=== PATIENT | male | born 2000 | race Caucasian/White ===

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

== ENCOUNTER 2022-01-05 16:12 | Outpatient (RCR) | payer MEDICAID ==
[~2022-01-05] VITALS: Ht 182.9 cm; Wt 90.8 kg
[~2022-01-05 16:12] MED LIST: FLOVENT 220MCG7.9 GM IH; IRON TABLETS325 MG PO; PEPTO BISMOL262 MG PO; PROAIR HFA0.09 MG/AC IH; TYLENOL 500MG500 MG PO
[2022-01-05 16:30] VITALS: BP 125/58; PULSE 76; TEMP 97.6
== END 2022-01-05 17:08 ==
LOC: EUO 16:12
DX: Z51.81 Encounter for therapeutic drug level monitoring (principal)
CPT/HCPCS: Q5106

== ENCOUNTER 2022-01-19 13:53 | Outpatient (CLI) | payer MEDICAID ==
[~2022-01-19] VITALS: Ht 182.9 cm; Wt 97.3 kg
[2022-01-19 14:48] VITALS: BP 126/80; PULSE 84; TEMP 98.3
== END 2022-01-19 15:25 | disposition home or self-care (01) ==
LOC: EUO 13:53
DX: D64.9 Anemia, unspecified (principal); N17.8 Other acute kidney failure
CPT/HCPCS: Q5106

== ENCOUNTER → 2022-01-27 | Outpatient (CLI) | payer MEDICAID | LOC: COL.RAD 16:32 | DX: R06.02 Shortness of breath (principal) ==

== ENCOUNTER 2022-02-05 15:01 | Outpatient (RCR) | payer MEDICAID ==
[~2022-02-05] VITALS: Ht 182.9 cm; Wt 98.7 kg
[2022-02-05 15:32] LABS: HEMATOCRIT 26.8 % (36.0-47.0); HEMOGLOBIN 9.4 g/dl (12.5-16.1)
[2022-02-05 15:54] VITALS: BP 120/68; PULSE 72; TEMP 97.8
== END 2022-02-05 15:57 ==
LOC: EUO 15:01
PROVIDERS: Internal Medicine Nephrology
DX: N17.8 Other acute kidney failure (principal); N18.9 Chronic kidney disease, unspecified; D63.1 Anemia in chronic kidney disease
CPT/HCPCS: Q5105; Q5106

== ENCOUNTER 2022-02-19 15:00 | Outpatient (CLI) | payer MEDICAID ==
[~2022-02-19] VITALS: Ht 182.9 cm; Wt 97.2 kg
[2022-02-19 15:32] VITALS: BP 122/70; PULSE 87; TEMP 97.9
== END 2022-02-19 17:31 ==
LOC: EUO 15:00
DX: N17.8 Other acute kidney failure (principal); D64.9 Anemia, unspecified
CPT/HCPCS: Q5105; Q5106

== ENCOUNTER 2022-03-08 15:58 | Outpatient (RCR) | payer MEDICAID ==
[~2022-03-08] VITALS: Ht 182.9 cm; Wt 97.2 kg
[2022-03-08 16:26] VITALS: BP 118/72; PULSE 59; TEMP 98
[2022-03-08] MEDS ORDERED: RETACRIT4000 UNIT/ SQ (16:29)
[2022-03-08 16:54] LABS: HEMATOCRIT 25.7 % (36.0-47.0); HEMOGLOBIN 9.3 g/dl (12.5-16.1)
--- NOTE | 2022-03-08 17:18 | NUR ---
Pt ambulates out from dept with steady gait. He states he has follow up with Dr Gonzalez within next 2 wks, and will ask about new order if continuig retacrit, as original order for 90 days will after next [facility] visit.
== END 2022-03-08 17:19 | disposition home or self-care (01) ==
LOC: EUO 15:58
PROVIDERS: Internal Medicine Nephrology
DX: D64.9 Anemia, unspecified (principal); N17.8 Other acute kidney failure
CPT/HCPCS: Q5106

== ENCOUNTER 2022-03-22 16:25 | Outpatient (CLI) | payer MEDICAID ==
[~2022-03-22] VITALS: Ht 182.9 cm; Wt 98.7 kg
[~2022-03-22 16:25] MED LIST changes: +RETACRIT4000 UNIT/ SQ
[2022-03-22 16:51] VITALS: BP 137/81; PULSE 73; TEMP 98.9
== END 2022-03-22 17:28 | disposition home or self-care (01) ==
LOC: EUO 16:25
DX: N17.8 Other acute kidney failure (principal); D64.4 Congenital dyserythropoietic anemia
CPT/HCPCS: Q5106

== ENCOUNTER 2022-04-06 16:01 | Outpatient (RCR) | payer MEDICAID ==
[~2022-04-06] VITALS: Ht 182.9 cm; Wt 100.3 kg
[2022-04-06] MEDS ORDERED: PEPTO BISM525 MG/15 PO (16:20)
[2022-04-06 16:21] VITALS: BP 135/80; PULSE 81; TEMP 98.2
== END 2022-04-13 08:21 | disposition home or self-care (01) ==
LOC: EUO 16:01
DX: N17.8 Other acute kidney failure (principal)
CPT/HCPCS: Q5106

== ENCOUNTER → 2022-04-15 | Outpatient (CLI) | payer MEDICAID ==
[~2022-04-15] MED LIST changes: +CLARITIN 1010 MG/TAB PO; +DEXILANT60 MG PO; +PEPTO BISM525 MG/15 PO
== END ==
LOC: COL.PUL 12:59
DX: R06.02 Shortness of breath (principal)
CPT/HCPCS: J7674

== ENCOUNTER 2022-04-19 17:15 | Outpatient (CLI) | payer MEDICAID ==
[~2022-04-19] VITALS: Ht 182.9 cm; Wt 100.0 kg
[~2022-04-19 17:15] MED LIST changes: -CLARITIN 1010 MG/TAB PO; -DEXILANT60 MG PO
[2022-04-19] MEDS ORDERED: CLARITIN 1010 MG/TAB PO (17:33)
[2022-04-19 17:34] VITALS: BP 139/68; PULSE 89; TEMP 98.1
[2022-04-19] MEDS ORDERED: DEXILANT60 MG PO (17:34)
[2022-04-19 17:38] LABS: HEMATOCRIT 26.7 % (36.0-47.0); HEMOGLOBIN 9.9 g/dl (12.5-16.1)
== END 2022-04-19 19:04 | disposition home or self-care (01) ==
LOC: EUO 17:15
PROVIDERS: Internal Medicine Nephrology
DX: N17.8 Other acute kidney failure (principal); D64.9 Anemia, unspecified
CPT/HCPCS: Q5106

== ENCOUNTER → 2022-04-27 | Outpatient (CLI) | payer MEDICAID ==
[~2022-04-27] MED LIST changes: +CLARITIN 1010 MG/TAB PO; +DEXILANT60 MG PO
[2022-04-27 15:11] LABS: CALCIUM 9.3 mg/dL (8.4-10.2); CREATININE, serum 5.14 mg/dL (0.72-1.25); PHOSPHOROUS 3.2 mg/dL (2.3-4.7); POTASSIUM 3.5 mmol/L (3.5-4.5)
== END ==
LOC: COL.LAB 14:38
PROVIDERS: Internal Medicine Nephrology
DX: N18.5 Chronic kidney disease, stage 5 (principal)

== ENCOUNTER → 2022-05-19 | Outpatient (CLI) | payer MEDICAID | LOC: COL.CARD 12:18 | DX: I47.1 Supraventricular tachycardia (principal) ==

== ENCOUNTER 2022-06-07 12:57 | Outpatient (CLI) | payer MEDICAID ==
[~2022-06-07] VITALS: Ht 182.9 cm; Wt 106.9 kg
[2022-06-07 13:10] VITALS: BP 116/69; PULSE 56; TEMP 98.4
[2022-06-07 13:11] LABS: HEMOGLOBIN 10.2 g/dl (12.5-16.1)
[2022-06-07 13:12] LABS: HEMATOCRIT 28.8 % (36.0-47.0)
== END 2022-06-07 13:46 ==
LOC: EUO 12:57
PROVIDERS: Internal Medicine Nephrology
DX: N18.9 Chronic kidney disease, unspecified (principal); D63.1 Anemia in chronic kidney disease
CPT/HCPCS: Q5106

== ENCOUNTER 2022-08-03 17:08 | Outpatient (CLI) | payer MEDICAID ==
[~2022-08-03] VITALS: Ht 182.9 cm; Wt 108.3 kg
[2022-08-03 17:52] VITALS: BP 122/75; PULSE 73; TEMP 98.3
[2022-08-03 17:56] LABS: HEMOGLOBIN 11.9 g/dl (12.5-16.1)
[2022-08-03 17:57] LABS: HEMATOCRIT 32.7 % (36.0-47.0)
== END 2022-08-03 18:39 | disposition home or self-care (01) ==
LOC: EUO 17:08
PROVIDERS: Internal Medicine Nephrology
DX: N18.5 Chronic kidney disease, stage 5 (principal); D63.1 Anemia in chronic kidney disease

== ENCOUNTER → 2022-08-30 | Outpatient (CLI) | payer MEDICAID ==
[2022-08-30 15:11] LABS: CALCIUM 9.5 mg/dL (8.4-10.2); CREATININE, serum 4.54 mg/dL (0.72-1.25); PHOSPHOROUS 3.1 mg/dL (2.3-4.7); POTASSIUM 3.6 mmol/L (3.5-4.5)
== END ==
LOC: COL.LAB 14:28
PROVIDERS: Internal Medicine Nephrology
DX: N18.5 Chronic kidney disease, stage 5 (principal)

== ENCOUNTER 2022-09-13 16:28 | Outpatient (RCR) | payer MEDICAID ==
[~2022-09-13] VITALS: Ht 182.9 cm; Wt 113.4 kg
[2022-09-13 16:43] LABS: HEMATOCRIT 29.6 % (36.0-47.0); HEMOGLOBIN 10.6 g/dl (12.5-16.1)
[2022-09-13 16:49] VITALS: BP 130/80; PULSE 88; TEMP 98.8
--- NOTE | 2022-09-13 17:16 | NUR ---
8000 UNITS RETACRIT ADMINISTERED, 4000 UNITS/ML RT AND LEFT UPPER ARMS.
== END 2022-09-13 19:10 | disposition home or self-care (01) ==
LOC: EUO 16:28
PROVIDERS: Internal Medicine Nephrology
DX: D43.1 Neoplasm of uncertain behavior of brain, infratentorial (principal); N18.5 Chronic kidney disease, stage 5
CPT/HCPCS: Q5106

== ENCOUNTER → 2022-11-16 | Outpatient (CLI) | payer MEDICAID ==
[2022-11-16 15:31] LABS: BASO % 0.3 % (0.0-2.0); EOS # 0.6 K/mm3 (0.0-0.7); EOS % 6.5 % (0.0-4.0); GRAN # 5.9 K/mm3 (1.4-6.5); GRAN % 66.3 % (42.2-75.2); HEMOGLOBIN 12.3 g/dl (12.5-16.1); LYMPH # 1.8 K/mm3 (1.2-3.4); LYMPH % 20.8 % (20.0-51.0); MEAN CELL VOLUME 84 fl (80.0-95.0); MEAN CORPUSCULAR HEMOGLOBIN 31 pg (26-32); MEAN CORPUSCULAR HGB CONC 37 g/dl (33.0-37.0); MEAN PLATELET VOLUME 9.7 fl (7.4-10.4); MONO # 0.5 K/mm3 (0.1-0.6); MONO % 5.8 % (1.7-9.3); PLATELET COUNT 258 K/mm3 (130-400); RED BLOOD COUNT 3.99 M/mm3 (4.20-5.60); REDCELL DISTRIBUTION WIDTH-CV 12.9 % (11.5-14.5)
[2022-11-16 15:41] LABS: HEMATOCRIT 33.3 % (36.0-47.0)
[2022-11-16 15:52] LABS: ALBUMIN 4.3 gm/dL (3.5-5.0); CALCIUM 9.3 mg/dL (8.4-10.2); CREATININE, serum 4.3 mg/dL (0.72-1.25); POTASSIUM 3.2 mmol/L (3.5-4.5)
== END ==
LOC: COL.LAB 14:41
PROVIDERS: Internal Medicine Nephrology
DX: N18.5 Chronic kidney disease, stage 5 (principal); D63.1 Anemia in chronic kidney disease

== ENCOUNTER → 2023-11-22 | Outpatient (CLI) | payer SELFPAY | LOC: COL.RAD 14:06 | DX: L04.9 Acute lymphadenitis, unspecified (principal) ==